=== PATIENT | female | born 1970 | race Two or more races ===

== ENCOUNTER 2021-05-09 16:07 | Emergency (ER) | payer BC, OTHER ==
[~2021-05-09] VITALS: Ht 160 cm; Wt 65.8 kg
[2021-05-09] MEDS ORDERED: IBUPROFEN 800 MG TAB PO ONE (16:45)
[2021-05-09 16:48] VITALS: BP 144/77
== END 2021-05-09 17:38 | disposition home or self-care (01) ==
LOC: ER 16:07
DX: S16.1XXA Strain of muscle, fascia and tendon at neck level, initial encounter (principal); S29.012A Strain of muscle and tendon of back wall of thorax, initial encounter; V43.62XA Car passenger injured in collision with other type car in traffic accident, initial encounter; Y93.89 Activity, other specified; Y92.89 Other specified places as the place of occurrence of the external cause; Y99.8 Other external cause status
CPT/HCPCS: 72040